=== PATIENT | male | born 1945 | race Caucasian/White ===

== ENCOUNTER 2019-03-11 10:26 | Inpatient (IN) | payer OTHER ==
[~2019-03-11] VITALS: Ht 165.1 cm; Wt 83.5 kg
[~2019-03-11 10:26] MED LIST: ACCUPRIL10 MG PO; ALTACE5 MG; ASA325 M1; ASA81 MG PO; ATENOLOL50 MG PO; METOPROLOL ER-1 EAC1; PLAVIX75 MG PO; ZOCOR40 MG PO
[2019-03-11] MEDS ORDERED: SINGULAIR5 MG PO (10:35)
[2019-03-11] MEDS ORDERED: HYDRALAZIN20 MG/1 ML IM (10:36)
== END 2019-03-14 11:03 | disposition designated cancer center or children's hospital (05) | DRG 303 ==
LOC: ER 10:26 → MEDI 15:33 → SEC-K 15:33 → MEDI 15:52
PROVIDERS: ADMIT Internal Medicine
PROC: 4A12X4Z Monitoring of Cardiac Electrical Activity, External Approach (ICD-10-PCS; principal; 2019-03-11)
PROC: B246ZZZ Ultrasonography of Right and Left Heart (ICD-10-PCS; 2019-03-12)
DX: I25.790 Atherosclerosis of other coronary artery bypass graft(s) with unstable angina pectoris (principal); I10 Essential (primary) hypertension; K21.9 Gastro-esophageal reflux disease without esophagitis; E78.00 Pure hypercholesterolemia, unspecified; J45.998 Other asthma; Z95.1 Presence of aortocoronary bypass graft

== ENCOUNTER 2020-01-24 12:43 | Emergency (ER) | payer OTHER ==
[~2020-01-24] VITALS: Ht 162.6 cm; Wt 81.6 kg
[~2020-01-24 12:43] MED LIST changes: +HYDRALAZIN20 MG/1 ML IM; +SINGULAIR5 MG PO
[2020-01-24] MEDS ORDERED: PLAVIX75 MG (13:05)
[2020-01-24] MEDS ORDERED: MUCINEX DM ER1 EAC1 PO (16:58)
[2020-01-24] MEDS ORDERED: TESSALON PERLE100 M1 PO (16:58)
== END 2020-01-24 17:17 | disposition home or self-care (01) ==
LOC: ER 12:43
DX: J45.901 Unspecified asthma with (acute) exacerbation (principal)

== ENCOUNTER → 2020-11-13 | Emergency (ER) | payer OTHER ==
[~2020-11-13] VITALS: Ht 160 cm; Wt 74.8 kg
[~2020-11-13] MED LIST changes: +FLONASE16 GM NS; +HYDROCHLOROTHIA25 MG PO; +MUCINEX DM ER1 EAC1 PO; +PLAVIX75 MG; +TESSALON PERLE100 M1 PO
== END | disposition left against medical advice (07) ==
LOC: ER 16:04
DX: Z53.21 Procedure and treatment not carried out due to patient leaving prior to being seen by health care provider (principal)

== ENCOUNTER 2021-07-23 15:21 | Emergency (ER) | payer OTHER ==
[~2021-07-23] VITALS: Ht 162.6 cm; Wt 74.8 kg
[2021-07-23] MEDS ORDERED: FOLIC ACID1 MG (16:03)
[2021-07-23] MEDS ORDERED: MAGNESIUM200 MG (16:04)
[2021-07-23] MEDS ORDERED: LEVO-T25 MCG (16:04)
== END 2021-07-23 17:24 | disposition home or self-care (01) ==
LOC: ER 15:21
DX: S60.211A Contusion of right wrist, initial encounter (principal); S00.83XA Contusion of other part of head, initial encounter; W18.09XA Striking against other object with subsequent fall, initial encounter; Y93.89 Activity, other specified; Y92.018 Other place in single-family (private) house as the place of occurrence of the external cause; Y99.8 Other external cause status

== ENCOUNTER 2022-01-04 09:13 | Emergency (ER) | payer OTHER ==
[~2022-01-04] VITALS: Ht 160 cm; Wt 81.6 kg
[~2022-01-04 09:13] MED LIST changes: +FOLIC ACID1 MG; +LEVO-T25 MCG; +MAGNESIUM200 MG
[2022-01-04] MEDS ORDERED: SIMVASTATIN40 MG PO (09:24)
[2022-01-04] MEDS ORDERED: MIRTAZAPINE15 MG PO (09:27)
[2022-01-04] MEDS ORDERED: CARBIDOPA-LEVO1 EA10 (09:27)
== END 2022-01-04 11:06 | disposition home or self-care (01) ==
LOC: ER 09:13
DX: S01.22XA Laceration with foreign body of nose, initial encounter (principal); W18.30XA Fall on same level, unspecified, initial encounter; Y93.9 Activity, unspecified; Y92.9 Unspecified place or not applicable; G20 Parkinson's disease

== ENCOUNTER 2022-07-16 11:00 | Emergency (ER) | payer OTHER ==
[~2022-07-16] VITALS: Ht 160 cm; Wt 72.1 kg
[~2022-07-16 11:00] MED LIST changes: +CARBIDOPA-LEVO1 EA10; +MIRTAZAPINE15 MG PO; +SIMVASTATIN40 MG PO
== END 2022-07-16 14:11 | disposition home or self-care (01) ==
LOC: ER 11:00
DX: S01.81XA Laceration without foreign body of other part of head, initial encounter (principal); W06.XXXA Fall from bed, initial encounter; Y93.89 Activity, other specified; Y92.013 Bedroom of single-family (private) house as the place of occurrence of the external cause; Y99.9 Unspecified external cause status

== ENCOUNTER → 2022-07-26 | Emergency (ER) | payer OTHER ==
[~2022-07-26] VITALS: Ht 160 cm; Wt 77.1 kg
[~2022-07-26] MED LIST changes: +QC VITAMIN B
== END | disposition home or self-care (01) ==
LOC: ER 09:23
DX: Z48.02 Encounter for removal of sutures (principal); Z87.828 Personal history of other (healed) physical injury and trauma

== ENCOUNTER 2022-09-26 03:12 | Emergency (ER) | payer OTHER ==
[~2022-09-26] VITALS: Ht 162.6 cm; Wt 74.8 kg
== END 2022-09-26 05:38 | disposition home or self-care (01) ==
LOC: ER 03:12
DX: B34.9 Viral infection, unspecified (principal); E78.00 Pure hypercholesterolemia, unspecified; I10 Essential (primary) hypertension; E03.9 Hypothyroidism, unspecified; G20 Parkinson's disease; Z20.822 Contact with and (suspected) exposure to COVID-19

== ENCOUNTER 2023-03-17 12:05 | Outpatient (CLI) | payer OTHER | END 2023-03-17 12:17 | disposition home or self-care (01) | LOC: RAD 12:05 | DX: R51.9 Headache, unspecified (principal); S09.90XA Unspecified injury of head, initial encounter; S69.91XA Unspecified injury of right wrist, hand and finger(s), initial encounter; M79.641 Pain in right hand; M25.531 Pain in right wrist ==

== ENCOUNTER 2023-03-30 13:20 | Emergency (ER) | payer OTHER ==
[~2023-03-30] VITALS: Ht 160 cm; Wt 77.1 kg
== END 2023-03-30 16:44 | disposition home or self-care (01) ==
LOC: ER 13:20
DX: S09.8XXA Other specified injuries of head, initial encounter (principal); W18.39XA Other fall on same level, initial encounter; Y93.01 Activity, walking, marching and hiking; Y92.098 Other place in other non-institutional residence as the place of occurrence of the external cause; I11.9 Hypertensive heart disease without heart failure; E03.9 Hypothyroidism, unspecified; G20 Parkinson's disease; F06.70 Mild neurocognitive disorder due to known physiological condition without behavioral disturbance; S69.82XA Other specified injuries of left wrist, hand and finger(s), initial encounter

== ENCOUNTER 2023-12-16 08:58 | Emergency (ER) | payer OTHER ==
[~2023-12-16] VITALS: Ht 160 cm; Wt 73.5 kg
[2023-12-16] MEDS ORDERED: KETOROLAC TROMETHAMINE 60 MG VIAL IM STA (10:03)
== END 2023-12-16 12:33 | disposition home or self-care (01) ==
LOC: ER 08:58
DX: S40.011A Contusion of right shoulder, initial encounter (principal); S00.83XA Contusion of other part of head, initial encounter; S70.01XA Contusion of right hip, initial encounter; S70.02XA Contusion of left hip, initial encounter; W19.XXXA Unspecified fall, initial encounter; Y93.89 Activity, other specified; Y92.89 Other specified places as the place of occurrence of the external cause; Y99.8 Other external cause status
CPT/HCPCS: 70450; 72040; 73020; 73521; 73560; 96372; 99284; J1885

== ENCOUNTER 2024-01-02 11:14 | Emergency (ER) | payer OTHER ==
[~2024-01-02] VITALS: Ht 160 cm; Wt 74.8 kg
[2024-01-02] MEDS ORDERED: METOPROLOL SUCC50 MG PO (11:29)
== END 2024-01-02 18:21 | disposition left against medical advice (07) ==
LOC: ER 11:14
DX: Z53.21 Procedure and treatment not carried out due to patient leaving prior to being seen by health care provider (principal)

== ENCOUNTER 2025-07-20 19:42 | Emergency (ER) | payer OTHER ==
[~2025-07-20] VITALS: Ht 170.2 cm; Wt 63.5 kg
[~2025-07-20 19:42] MED LIST changes: +METOPROLOL SUCC50 MG PO
[2025-07-20] MEDS ORDERED: RAMIPRIL5 MG (20:22)
[2025-07-20] MEDS ORDERED: LEVOTHYROXINE75 MC1 PO (20:22)
[2025-07-20] MEDS ORDERED: CARBIDOPA-LEVO1 EAC9 (20:22)
[2025-07-20] MEDS ORDERED: MIRTAZAPINE30 M1 (20:23)
[2025-07-20] MEDS ORDERED: TAMS0.4C PO (20:23)
[2025-07-20] MEDS ORDERED: DIALYVITE TABL1 EACH (20:24)
[2025-07-20] MEDS ORDERED: SIMVASTATIN80 MG (20:24)
[2025-07-20] MEDS ORDERED: TRAZODONE HCL100 MG PO (20:24)
[2025-07-20] MEDS ORDERED: ORPHENADRINE CITRATE 30 MG/ML AMPUL ONE (20:56)
[2025-07-20] MEDS ORDERED: ORPHENADRINE CITRATE 30 MG/ML AMPUL IM ONE (21:00)
[2025-07-20 21:16] LABS: BASO % 0.4 % (0.1-1.2); EOS # 0.12 (0.04-0.54); EOS % 1.0 % (0.7-7.0); LYMPH # 1.74 (1.18-3.74); LYMPH % 14.7 % (19.3-53.1); MEAN PLATELET VOLUME 10.90 fl (9.4-12.4); MONO # 0.92 (0.24-0.82); MONO % 7.8 % (4.7-12.5); NEUT # 8.96 (1.56-6.13); NEUT % 75.7 % (34.0-71.1); RED CELL DISTRIBUTION WIDTH 12.3 % (11.6-14.4)
[2025-07-20 21:41] LABS: ALT/SGPT 19.0 U/L (12-78); AST/SGOT 13.0 U/L (15-37); BILIRUBIN TOTAL 0.29 mg/dL (0.3-1.2); BUN CREA RATIO 18.0 (7.0-25.0); CREATININE SERUM 0.82 mg/dL (0.70-1.30); GFR 90.86; GLOBULINA 3.8 G/DL (2.4-3.5); GLUCOSE FASTING 108.0 mg/dL (65-100); OSMOLALITY SERUM 283.0 MOSM/KG (275-295)
[2025-07-20 22:43] LABS: URINE APPEARANCE Clear; URINE BILIRRUBIN Negative (NEGATIVE); URINE BLOOD Small; URINE COLOR Yellow; URINE GLUCOSE Negative (NEGATIVE); URINE KETONE Negative (NEGATIVE); URINE LEUKOCYTE Trace; URINE NITRATE Negative; URINE PROTEIN Trace (NEGATIVE); URINE UROBILINOGEN 2.0 E.U./dl
[2025-07-20 22:48] LABS: URINE BACTERIA 67.1 uL (0.0-1933); URINE EPITHELIAL CELLS 14.3 uL (0.0-38.8); URINE RBC 69.3 uL (0.0-20.8); URINE WBC 59.0 uL (0.0-23.2)
[2025-07-20 23:00] LABS: URINE CAST 0.73 uL (0.0-1.40)
[2025-07-20 23:04] LABS: URINE YEAST NEGATIVE /hpf
== END 2025-07-21 01:32 | disposition home or self-care (01) ==
LOC: ER 19:42
PROVIDERS: Student in an Organized Health Care Education/Training Program
DX: S09.8XXA Other specified injuries of head, initial encounter (principal); W07.XXXA Fall from chair, initial encounter; Y93.89 Activity, other specified; Y92.098 Other place in other non-institutional residence as the place of occurrence of the external cause; Y99.8 Other external cause status; I10 Essential (primary) hypertension; E03.8 Other specified hypothyroidism
CPT/HCPCS: 36415; 70450; 71250; 74176; 96372; 99284; J2360